=== PATIENT | male | born 1980 | race Hispanic/Latino ===

== ENCOUNTER → 2023-06-01 | Emergency (ER) | payer OTHER ==
[~2023-06-01] MED LIST: HYDROCODONE/APAP 10/325 TAB ONE
--- OUTSIDE RECORDS SUMMARY | 2023-06-01 18:53 | XMS REPORT | Continuity of Care Document ---
Author Name Unknown Address [address] [facility] [address] [place] [address] [facility] thconnect Address [address] [facility] [address] [place] [address] Care Team Providers Care Entry Level Project Engineer Name Role Phone KORINA AWAN Primary Care Physician KORINA Marques Attending Clinician Korina Yusuf MD Attending Clinician [phone]- [phone] JANE GLEZ Attending Clinician Unavailable Jane Glez PA-C Attending Clinician [phone] Unknown, Attending Attending Clinician Unavailab Mccarty Unassigned, [place]christ Attending Clinician U JACOB Andino Attending Clinician Unavail JACOB Nowak Attending Clinician Unavail Jacob Nowak MD Attending Clinician James Mendoza Attending Clinician [phone] JAMES CEDILLO Attending Clinician Unavailable Lab, Adc Fam Pob I Attending Clinician UnavailJACOB Chi Admitting Clinician Ahsan haas Payers Payer Name Policy Type Policy Number Effective Date Expirati on Date Source Problems Condition Name Condition Details Condition Category Status Onset Date Resolution Date Last Treatment Date Treating Clinician Comments Source No known active problems No known active problems Disease [facility] Allergies, Adverse Reactions, Alerts Allergy Name Allergy Type Status Severity Reaction(s) Onset Date Inactive Date Treating Clinician Comments Source NO KNOWN ALLERGIE S Drug Class Active [facility] Social History Social Habit Start Date Stop Date Quantity Comments Source Sexual orientation [facility] History of tobacco use Snuff User [facility] Alcohol intake 2023-02-08 00:00:00 2023-02-08 00:00:00 .71 /d [facility] Exposure to SARS-CoV-2 (event) 2022-04-07 00:00:00 2022-04-17 14:07:00 Not sure [facility] Tobacco use and exposure 2022-03-20 00:00:00 2022-03-20 00:00:00 User of smokeless tobacco [facility] History of Social function 2022-03-12 00:00:00 2022-03-12 00:00:00 [facility] Sex Assigned At 1980 00:00:00 1980 00:00:00 [facility] Smoking Status Start Date Stop Date Source Occasional tobacco smoker 2022-03-20 00:00:00 [facility] Ex-smoker 2020-12-01 00:00:00 2020-12-01 00:00:00 [facility] Never smoker [facility] Medications Ordered Medication Name Filled Medication Name Start Date Stop Date Current Medication? Ordering Clinician Indication Dosage Frequency Signature (SIG) Comments Components Source omeprazole 20 mg capsule 2022-03 00:00: 00 Yes [id number] TAKE ONE CAPSULE BY MOUTH EVERY MORNING [facility] omeprazole 20 mg capsule 2022-03 00:00: 00 Yes [id number] 20mg Take 1 capsule by mouth in the morning. [facility] omeprazole 20 mg capsule 2022-03 00:00: 00 03-05 00:00 :00 No [id number] 20mg Take 1 capsule by mouth in the morning. [facility] benzonatate (TESSALON PERLES) 100 mg capsule 2022-03 00:00: 00 Yes [id number] 100mg Take 1 capsule by mouth every 8 (eight) hours as needed for Cough. [facility] benzonatate (TESSALON PERLES) 100 mg capsule 2022-03 00:00: 00 Yes [id number] 100mg Take 1 capsule by mouth every 8 (eight) hours as needed for Cough. [facility] benzonatate (TESSALON PERLES) 100 mg capsule 2022-03 00:00: 00 Yes [id number] 100mg Take 1 capsule by mouth every 8 (eight) hours as needed for Cough. [facility] oseltamivir (TAMIFLU) 75 mg capsule 2022-03 00:00: 00 02-14 05:59 :00 No [id number] 75mg Take 1 capsule by mouth in the morning and 1 capsule in the evening. Do all this for 5 days. [facility] indomethaci n 50 mg capsule - 00:00: 00 Yes [id number] 50mg Take 1 capsule by mouth as needed for Pain. Prior to strenuous activity. [facility] indomethaci n 50 mg capsule 03-20 00:00: 00 Yes [id number] 50mg Take 1 capsule by mouth as needed for Pain. Prior to strenuous activity. [facility] indomethaci n 50 mg capsule - 00:00: 00 Yes [id number] 50mg Take 1 capsule by mouth as needed for Pain. Prior to strenuous activity. [facility] indomethaci n 50 mg capsule 0 - 00:00: 00 Yes [id number] 50mg Take 1 capsule by mouth as needed for Pain. Prior to strenuous activity. [facility] indomethaci n 50 mg capsule 0 03-20 00:00: 00 Yes [id number] 50mg Take 1 capsule by mouth as needed for Pain. Prior to strenuous activity. [facility] indomethaci n 50 mg capsule 0 -10 00:00: 00 Yes [id number] 50mg Take 1 capsule by mouth as needed for Pain. Prior to strenuous activity. [facility] indomethaci n 50 mg capsule 0 -10 00:00: 00 Yes [id number] 50mg Take 1 capsule by mouth as needed for Pain. Prior to strenuous activity. [facility] indomethaci n 50 mg capsule 2022-0 -10 00:00: 00 Yes [id number] 50mg Take 1 capsule by mouth as needed for Pain. Prior to strenuous activity. [facility] indomethaci n 50 mg capsule 3-0 -10 00:00: 00 Yes [id number] 50mg Take 1 capsule by mouth as needed for Pain. Prior to strenuous activity. [facility] indomethaci n 50 mg capsule 3-0 1-10 00:00: 00 Yes [id number] 50mg Take 1 capsule by mouth as needed for Pain. Prior to strenuous activity. [facility] indomethaci n 50 mg capsule 3-0 -10 00:00: 00 Yes [id number] 50mg Take 1 capsule by mouth as needed for Pain. Prior to strenuous activity. [facility] indomethaci n 50 mg capsule 3-0 -10 00:00: 00 Yes [id number] 50mg Take 1 capsule by mouth as needed for Pain. Prior to strenuous activity. [facility] indomethaci n 50 mg capsule 3-0 -10 00:00: 00 Yes [id number] 50mg Take 1 capsule by mouth as needed for Pain. Prior to strenuous activity. [facility] indomethaci n 50 mg capsule 3-0 -10 00:00: 00 Yes [id number] 50mg Take 1 capsule by mouth as needed for Pain. Prior to strenuous activity. [facility] indomethaci n 50 mg capsule 3-0 -10 00:00: 00 Yes [id number] 50mg Take 1 capsule by mouth as needed for Pain. Prior to strenuous activity. [facility] indomethaci n 50 mg capsule 3-0 -10 00:00: 00 Yes [id number] 50mg Take 1 capsule by mouth as needed for Pain. Prior to strenuous activity. [facility] indomethaci n 50 mg capsule 3-0 -10 00:00: 00 Yes [id number] 50mg Take 1 capsule by mouth as needed for Pain. Prior to strenuous activity. [facility] omeprazole 20 mg capsule 3-0 - 13:16: 02 03-12 00:00 :00 No 20mg Take 20 mg by mouth daily. [facility] omeprazole 20 mg capsule 2022-0 03-12 13:16: 02 03-12 00:00 :00 No 20mg Take 20 mg by mouth daily. [facility] omeprazole 20 mg capsule 3-0 03-12 00:00: 00 Yes [id number] 20mg Take 1 capsule by mouth in the morning. [facility] omeprazole 20 mg capsule 2022-0 03-12 00:00: 00 Yes [id number] 20mg Take 1 capsule by mouth in the morning. [facility] omeprazole 20 mg capsule 0 03-12 00:00: 00 Yes [id number] 20mg Take 1 capsule by mouth in the morning. [facility] omeprazole 20 mg capsule 2022-0 03-12 00:00: 00 Yes [id number] 20mg Take 1 capsule by mouth in the morning. [facility] omeprazole 20 mg capsule 0 03-12 00:00: 00 Yes [id number] 20mg Take 1 capsule by mouth in the morning. [facility] omeprazole 20 mg capsule 2022-0 03-12 00:00: 00 Yes [id number] 20mg Take 1 capsule by mouth in the morning. [facility] omeprazole 20 mg capsule 0 03-12 00:00: 00 Yes [id number] 20mg Take 1 capsule by mouth in the morning. [facility] omeprazole 20 mg capsule 0 03-12 00:00: 00 Yes [id number] 20mg Take 1 capsule by mouth in the morning. [facility] omeprazole 20 mg capsule 3-0 03-12 00:00: 00 Yes [id number] 20mg Take 1 capsule by mouth in the morning. [facility] omeprazole 20 mg capsule 3-0 03-12 00:00: 00 Yes [id number] 20mg Take 1 capsule by mouth in the morning. [facility] omeprazole 20 mg capsule 3-0 03-12 00:00: 00 Yes [id number] 20mg Take 1 capsule by mouth in the morning. [facility] omeprazole 20 mg capsule 3-0 03-12 00:00: 00 Yes [id number] 20mg Take 1 capsule by mouth in the morning. [facility] omeprazole 20 mg capsule 03-12 00:00: 00 Yes [id number] 20mg Take 1 capsule by mouth in the morning. [facility] omeprazole 20 mg capsule 03-12 00:00: 00 Yes [id number] 20mg Take 1 capsule by mouth in the morning. [facility] omeprazole 20 mg capsule 03-12 00:00: 00 Yes [id number] 20mg Take 1 capsule by mouth in the morning. [facility] omeprazole 20 mg capsule 03-12 00:00: 00 Yes [id number] 20mg Take 1 capsule by mouth in the morning. [facility] omeprazole 20 mg capsule 03-12 00:00: 00 Yes [id number] 20mg Take 1 capsule by mouth in the morning. [facility] omeprazole 20 mg capsule 03-12 00:00: 00 02-22 00:00 :00 No [id number] 20mg Take 1 capsule by mouth in the morning. [facility] loratadine (CLARITIN ORAL) 12-01 17:50: 20 Yes Take by mouth. [facility] loratadine (CLARITIN ORAL) 12-01 17:50: 20 Yes Take by mouth. [facility] loratadine (CLARITIN ORAL) 12-01 17:50: 20 Yes Take by mouth. [facility] loratadine (CLARITIN ORAL) 12-01 17:50: 20 Yes Take by mouth. [facility] loratadine (CLARITIN ORAL) 12-01 17:50: 20 Yes Take by mouth. [facility] loratadine (CLARITIN ORAL) 12-01 17:50: 20 Yes Take by mouth. [facility] loratadine (CLARITIN ORAL) 12-01 17:50: 20 Yes Take by mouth. [facility] loratadine (CLARITIN ORAL) 12-01 17:50: 20 Yes Take by mouth. [facility] loratadine (CLARITIN ORAL) 12-01 17:50: 20 Yes Take by mouth. [facility]CLARITIN ORAL) 12-01 17:50: 20 Yes Take by mouth. [facility] loratadine (CLARITIN ORAL) 12-01 17:50: 20 Yes Take by mouth. [facility] 12-01 17:50: 20 Yes Take by mouth. [facility] loratadine (CLARITIN ORAL) 12-01 17:50: 20 Yes Take by mouth. [facility] loratadine (CLARITIN ORAL) 12-01 17:50: 20 Yes Take by mouth. [facility] loratadine (CLARITIN ORAL) 12-01 17:50: 20 Yes Take by mouth. [facility] loratadine (CLARITIN ORAL) 12-01 17:50: 20 Yes Take by mouth. [facility] loratadine (CLARITIN ORAL) 12-01 17:50: 20 Yes Take by mouth. [facility] loratadine (CLARITIN ORAL) 12-01 17:50: 20 Yes Take by mouth. [facility] loratadine (CLARITIN ORAL) 12-01 17:50: 20 Yes Take by mouth. [facility] loratadine (CLARITIN ORAL) 12-01 17:50: 20 Yes Take by mouth. [facility] hydrocortis one 2.5 % cream 12-01 00:00: 00 Yes [id number] Apply to area(s) 3 (three) times daily as needed for Itching. [facility] hydrocortis one 2.5 % cream 12-01 00:00: 00 03-12 00:00 :00 No [id number] Apply to area(s) 3 (three) times daily as needed for Itching. [facility] hydrocortis one 2.5 % cream 12-01 00:00: 00 03-12 00:00 :00 No [id number] Apply to area(s) 3 (three) times daily as needed for Itching. [facility] predniSONE 20 mg tablet 12-01 00:00: 00 12-23 04:59 :00 No [id number] Take 3 tablets by mouth daily for 7 days, THEN 2 tablets daily for 7 days, THEN 1 tablet daily for 7 days. [facility] omeprazole 20 mg capsule 09-29 15:21: 06 Yes 20mg Take 20 mg by mouth daily. [facility] omeprazole 20 mg capsule 09-29 15:21: 06 Yes 20mg Take 20 mg by mouth daily. [facility] omeprazole 20 mg capsule 09-29 15:21: 06 Yes 20mg Take 20 mg by mouth daily. [facility] omeprazole 20 mg capsule 09-29 15:21: 06 Yes 20mg Take 20 mg by mouth daily. [facility] omeprazole 10 mg capsule 09-29 15:19: 29 09-29 00:00 :00 No 10mg Take 10 mg by mouth daily. [facility] omeprazole 10 mg capsule 09-29 15:19: 29 09-29 00:00 :00 No 10mg Take 10 mg by mouth daily. [facility] omeprazole 20 mg capsule 09-29 10:21: 06 Yes 20mg Take 20 mg by mouth daily. [facility] Vital Signs Vital Name Observation Time Observation Value Comments S jerome Systolic blood pressure 2023-02-08 17:02:00 136 mm[Hg] [facility] Diastolic blood pressure 2023-02-08 17:02:00 84 mm[Hg] [facility] Heart rate 2023-02-08 16:59:00 94 /min [facility] 2023-02-08 16:59:00 37 Kay [facility] Respiratory rate 2023-02-08 16:59:00 13 /min [facility] Body height 2023-02-08 16:59:00 167.6 cm [facility] Body weight 2023-02-08 16:59:00 109.997 kg [facility] BMI 2023-02-08 16:59:00 39.14 kg/m2 [facility] Oxygen saturation in Arterial blood by Pulse oximetry 2023-02-08 16:59:00 97 /min [facility] Systolic blood pressure 2022-04-17 20:26:00 149 mm[Hg] [facility] Diastolic blood pressure 2022-04-17 20:26:00 92 mm[Hg] [facility] Heart rate 2022-04-17 20:26:00 77 /min [facility] Body height 2022-04-17 20:26:00 167.6 cm [facility] Body weight 2022-04-17 20:26:00 109.77 kg [facility] BMI 2022-04-17 20:26:00 39.06 kg/m2 [facility] Oxygen saturation in Arterial blood by Pulse oximetry 2022-04-17 20:26:00 97 /min [facility] Systolic blood pressure 2022-03-20 19:39:00 134 mm[Hg] [facility] Diastolic blood pressure 2022-03-20 19:39:00 90 mm[Hg] [facility] Heart rate 2022-03-20 19:39:00 71 /min [facility] Body height 2022-03-20 19:39:00 167.6 cm [facility] Body weight 2022-03-20 19:39:00 109.77 kg [facility] BMI 2022-03-20 19:39:00 39.06 kg/m2 [facility] Systolic blood pressure 2022-03-12 19:01:00 126 mm[Hg] [facility] Diastolic blood pressure 2022-03-12 19:01:00 89 mm[Hg] [facility] Heart rate 2022-03-12 19:01:00 98 /min [facility] Body temperature 2022-03-12 19:01:00 37.11 Kay [facility] Body height 2022-03-12 19:01:00 167.6 cm [facility] Body weight 2022-03-12 19:01:00 110.678 kg [facility] BMI 2022-03-12 19:01:00 39.38 kg/m2 [facility] Systolic blood pressure 2020-12-01 22:52:00 138 mm[Hg] [facility] Diastolic blood pressure 2020-12-01 22:52:00 90 mm[Hg] [facility] Heart rate 2020-12-01 22:49:00 104 /min [facility] Body temperature 2020-12-01 22:49:00 36.83 Kay [facility] Respiratory rate 2020-12-01 22:49:00 17 /min [facility] Body height 2020-12-01 22:49:00 167.6 cm [facility] Body weight 2020-12-01 22:49:00 106.595 kg [facility] BMI 2020-12-01 22:49:00 37.93 kg/m2 [facility] Oxygen saturation in Arterial blood by Pulse oximetry 2020-12-01 22:49:00 98 /min [facility] Systolic blood pressure 2020-09-29 15:12:00 134 mm[Hg] [facility] Diastolic blood pressure 2020-09-29 15:12:00 88 mm[Hg] [facility] Heart rate 2020-09-29 15:12:00 98 /min [facility] Body height 2020-09-29 15:12:00 167.6 cm [facility] Body weight 2020-09-29 15:12:00 108.682 kg [facility] BMI 2020-09-29 15:12:00 38.67 kg/m2 [facility] Oxygen saturation in Arterial blood by Pulse oximetry 2020-09-29 15:12:00 97 /min [facility] Procedures Procedure Date / Time Performed Performing Clinicia n Source POCT MOLECULAR FLU 2023-02-08 17:07:00 Unknown, Attend ing [facility] PATIENT FINANCIAL POLICY 2023-02-08 16:33:17 Doctor Unassigned, Gilchrist [facility] CT HEAD WO CONTRAST 2022-04-10 14:48:49 Vijaya Bravo [facility] ASSIGNMENT OF BENEFITS 2022-04-10 14:30:38 Docto r Unassigned, Gilchrist [facility] XR SACRUM AND COCCYX 2020-09-29 16:20:00 Reyes Awan [facility] Encounters Start Date/Time End Date/Time Encounter Type Admission Type Attending Clinicians Care Facility Care Department Encounter ID Source 2023-03-05 00:00:00 2023-03-05 00:00:00 Ref[facility]ina [facility] [id number] 350.1.13.10 4.2.7.2.686 [id number] [facility] 2023-02-22 00:00:00 2023-02-22 00:00:00 Nicci Awan [facility] [id number] 350.1.13.10 4.2.7.2.686 [id number] [facility] 2023-02-08 10:20:00 2023-02-08 11:21:30 Outpatient R JANE GLEZ [facility] [id number] [facility] 2023-02-08 10:20:00 2023-02-08 11:21:30 Urgent Care Jane Glez Unknown, Attending [facility] [id number] 350.1.13.10 4.2.7.2.686 [id number] [facility] 2023-02-08 00:00:00 2023-02-08 00:00:00 Orders Only Doctor Unassigned, Gilchrist [facility] 1.20.114 350.1.13.10 4.2.7.2.686 [id number] [facility] 2022-04-17 14:20:00 2022-04-17 14:45:03 Outpatient JACOB BOWMAN [facility] [id number] [facility] 2022-04-17 14:20:00 2022-04-17 14:45:03 Office Visit [facility]Yann [facility] 1.114 350.1.13.10 4.2.7.2.686 [id number] [facility] 2022-04-10 08:31:26 2022-04-10 23:59:00 Outpatient JACOB BOWMAN [facility] [id number] [facility] 2022-04-10 08:31:26 2022-04-10 23:59:00 Hospital Encounter Jacob Bravo [facility] 1.114 350.1.13.10 4.2.7.2.686 [id number] [facility] 2022-04-10 00:00:00 2022-04-10 00:00:00 Orders Only Doctor Unassigned, Gilchrist [facility] 1.2.114 350.1.13.10 4.2.7.2.686 [id number] [facility] 2022-04-04 00:00:00 2022-04-04 00:00:00 Telephone Jacob Bravo [facility]?SHARI [facility] [id number] 350.1.13.10 4.2.7.2.686 [id number] [facility] 2022-03-30 14:17:43 2022-03-30 23:59:00 Hospital Encounter Jacob Bravo [facility] [id number] 350.1.13.10 4.2.7.2.686 [id number] [facility] 2022-03-30 00:00:00 2022-03-30 23:59:00 Outpatient JACOB BOWMAN [facility] [id number] [facility] 2022-03-30 00:00:00 2022-03-30 00:00:00 [facility] OFF[facility] [id number] 350.1.13.10 4.2.7.2.686 [id number] [facility] 2022-03-21 00:00:00 2022-03-21 00:00:00 [facility] 1.2.840.114 350.1.13.10 4.2.7.2.686 [id number] [facility] 2022-03-21 00:00:00 2022-03-21 00:00:00 Telephone [facility]Yann [facility] 1.2.840.114 350.1.13.10 4.2.7.2.686 [id number] [facility] 2022-03-20 14:40:00 2022-03-20 14:40:00 Outpatient JACOB BOWMAN [facility] [id number] [facility] 2022-03-20 13:40:00 2022-03-20 14:39:14 Outpatient JACOB BOWMAN [facility] [id number] [facility] 2022-03-20 13:40:00 2022-03-20 14:39:14 Office Visit Jacob Bravo [facility] KATE?[facility] [id number] 350.1.13.10 4.2.7.2.686 [id number] [facility] 2022-03-20 00:00:00 2022-03-20 00:00:00 Telephone Jacob Bravo [facility] 1.84.114 350.1.13.10 4.2.7.2.686 [id number] [facility] 2022-03-12 13:15:00 2022-03-12 13:30:00 Office Visit Korina [facility]wan [facility] 1.84.114 350.1.13.10 4.2.7.2.686 [id number] [facility] 2022-03-12 13:15:00 2022-03-12 13:15:[address]INA PEÑA [facility] [id number] [facility] 2020-12-01 17:44:29 2020-12-01 18:04:29 Urgent Care James Cedillo [facility] 1.84.114 350.1.13.10 4.2.7.2.686 [id number] [facility] 2020-12-01 17:40:00 2020-12-01 17:40:00 Outpatient R JAMES CED[facility]O 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, [facility] Pob Sheila Awan [facility] Office Building One 1..114 350.1.13.10 4.2.7.2.686 [id number] [facility] 2020-09-29 10:00:37 2020-09-29 10:30:37 Office Visit Emperatriz [facility] Office Building One 1.114 350.1.13.10 4.2.7.2.686 [id number] [facility] 2020-09-29 10:15:00 2020-09-29 10:15:00 Outpatient R EMPERATRIZ [facility] [id number] [facility] Results Test Description Test Time Test Comments Results Result Co [facility]ments Source [facility] SA[facility] AND [id number] 19:30:39 FINDINGS/IMPRESSION: No fractures or dislocations are identified. The SI joints are unremarkable without degenerative changes. HISTORY:coccydynia TECHNIQUE: Frontal and lateral views of the sacrum and coccyx wereobtained. COMPARISON:None. [facility], Radiant Results Inft User - 09/29/2020 2:31 PM CDTForma tting of this note might be different from the original.HISTORY:coccydynia TECHNIQUE: Frontal and lateral views of the sacrum and coccyx wereobtained.COMPARISON:None.IMPRESSIONFINDINGS/IMPRESSION:No fractures or dislocations are identified.The SI joints are unremarkable without degenerative changes.[facility]
--- NOTE | 2023-06-01 19:35 | EDPHYS ---
Physician Documentation [facility] Name: Norm Pierre Age: 42 yrs Sex: Male : 1980 Arrival Date: 06/01/2023 Time: 18:49 Bed 10 Private MD: Burton Moseley ED Physician Henrry Francis HPI: 05/31 22:13 This 42 yrs old Male presents to ER via Ambulatory with complaints of Mouth rt Problem. 22:13 Patient presents to the ED with pain to the right lower molar. Patient is scheduled to rt have this tooth removed on Saturday. Is currently taking amoxicillin for it. Is currently taking ibuprofen, getting adequately for the pain and is having difficulty sleeping. Denies any difficulty swallowing. Denies other acute complaints at this time, symptoms are aching nature, moderate severity, no other aggravating or elevating factor.. Historical: - Allergies: 19:24 No Known Allergies; km8 - PMHx: 19:24 None; km8 - PSHx: 19:24 Tonsillectomy; km8 - Immunization history:: Client reports having NOT received the Covid vaccine. Flu vaccine is not up to date. - Social history:: Smoking status: Patient denies any tobacco usage or history of. Patient uses alcohol, weekly. Patient/guardian denies using street drugs. - Family history:: not pertinent. ROS: 22:13 Constitutional: Negative for fever, chills, and weight loss, Cardiovascular: Negative rt for chest pain, palpitations, and edema, Respiratory: Negative for shortness of breath, cough, wheezing, and pleuritic chest pain, Abdomen/GI: Negative for abdominal pain, nausea, vomiting, diarrhea, and constipation, Skin: Negative for injury, rash, and discoloration, Neuro: Negative for headache, weakness, numbness, tingling, and seizure, 22:13 ENT: Positive for dental pain, Negative for difficulty swallowing, Exam: 22:13 Constitutional: This is a well developed, well nourished patient who is awake, alert, rt and in no acute distress. Head/Face: Normocephalic, atraumatic. Chest/axilla: Normal chest wall appearance and motion. Nontender with no deformity. No lesions are appreciated. Cardiovascular: Regular rate and rhythm with a normal S1 and S2. No gallops, murmurs, or rubs. Normal PMI, no JVD. No pulse deficits. Respiratory: Lungs have equal breath sounds bilaterally, clear to auscultation and percussion. No rales, rhonchi or wheezes noted. No increased work of breathing, no retractions or nasal flaring. Abdomen/GI: Soft, non-tender, with normal bowel sounds. No distension or tympany. No guarding or rebound. No evidence of tenderness throughout. Skin: Warm, dry with normal turgor. Normal color with no rashes, no lesions, and no evidence of cellulitis. MS/ Extremity: Pulses equal, no cyanosis. Neurovascular intact. Full, normal range of motion. 22:13 ENT: Dental caries noted to the right inferior molar, no appreciable swelling, no erythema, no stridor, airway involvement. Vital Signs: 19:22 BP 170 / 109; Pulse 88; Resp 16; Temp 98.6(TE); Pulse Ox 97% on R/A; Weight 106.59 kg km8 (R); Height 5 ft. 6 in. (R); Pain 4/10; 19:22 Body Mass Index 37.93 (106.59 kg, 167.64 cm) km 19:22 Pain Scale: Adult km8 [place] Coma Score: 19:22 Eye Response: spontaneous(4). Motor Response: obeys commands(6). Verbal Response: km8 oriented(5). Total: 15. MDM: 19:28 Patient medically screened. rt 22:13 Differential diagnosis: dental caries. Data reviewed: vital signs, nurses notes. I rt considered the following discharge prescriptions or medication management in the emergency department Medications were administered in the Emergency Department. See MAR. Test considered but Not performed: CT: No evidence of airway involvement, low suspicion for RPA, [employer], Jr's angina, CT scan is not indicated. Counseling: I had a detailed discussion with the patient and/or guardian regarding the historical points, exam findings, and any diagnostic results supporting the discharge/admit diagnosis, the need for outpatient follow up, to return to the emergency department if symptoms worsen or persist or if there are any questions or concerns that arise at home. Administered Medications: 19:45 Drug: Scio PO 10 mg-325 mg 1 tabs PO once Route: PO; 8 19:47 Follow up: Response: Medication administered at discharge. km8 Disposition Summary: 06/01/23 19:34 Discharge Ordered Notes: Location: Home rt Problem: an ongoing problem rt Symptoms: are unchanged rt Condition: Stable rt Diagnosis - Dental Pain rt Followup: rt - With: Private Physician - When: 2 - 3 days - Reason: Discharge Instructions: - Discharge Summary Sheet rt - Dental Pain rt Forms: - Medication Reconciliation Form rt - Thank You Letter rt - Antibiotic Education rt - Prescription Opioid Use rt - Patient Portal Instructions rt - Leadership Thank You Letter rt Prescriptions: - acetaminophen-codeine 300-30 mg Oral tablet - take 1 tablet ORAL route every 8 hours as needed for pain; 18 tablet; Refills: rt 0, Product Selection Permitted Signatures: Henrry Francis MD MD rt Negin Miner RN RN km8
--- NOTE | 2023-06-01 19:35 | ER ---
Nurse's Notes [facility] Name: Norm Pierre Age: 42 yrs Sex: Male : 1980 Arrival Date: 06/01/2023 Time: 18:49 Bed 10 Private MD: Burton Moseley Diagnosis: Dental Pain Presentation: 05/31 19:22 Chief complaint: Patient states: reports right bottom tooth pain starting yesterday; pt km8 has appointment to get broken tooth removed Saturday and is currently on Amoxicillin. Coronavirus screen: Client denies travel out of the [place] in the last 14 days. Ebola Screen: No symptoms or risks identified at this time. Initial Sepsis Screen: Does the patient meet any 2 criteria? No. Patient's initial sepsis screen is negative. Does the patient have a suspected source of infection? No. Patient's initial sepsis screen is negative. Risk Assessment: Do you want to hurt yourself or someone else? Patient reports no desire to harm self or others. Onset of symptoms was May 31, 2023. 19:22 Method Of Arrival: Ambulatory km8 19:22 Acuity: CATHY 3 km8 Triage Assessment: 19:24 General: Appears in no apparent distress. uncomfortable, Behavior is calm, cooperative, km8 appropriate for age. Pain: Complains of pain in lower right third molar Pain currently is 4 out of 10 on a pain scale. Quality of pain is described as aching. EENT: Dental caries noted in lower right third molar (#32). Neuro: Level of Consciousness is awake, alert, obeys commands, Oriented to person, place, time, situation. Cardiovascular: Denies chest pain, shortness of breath, Patient's skin is warm and dry. Respiratory: Airway is patent Respiratory effort is even, unlabored, Respiratory pattern is regular, symmetrical. GI: No signs and/or symptoms were reported involving the gastrointestinal system. : No signs and/or symptoms were reported regarding the genitourinary system. Derm: No signs and/or symptoms reported regarding the dermatologic system. Skin is intact, is healthy with good turgor, Skin is dry, Skin is pink, warm \T\ dry. normal, Skin temperature is warm. Musculoskeletal: No signs and/or symptoms reported regarding the musculoskeletal system. Range of motion: intact in all extremities. Historical: - Allergies: 19:24 No Known Allergies; km8 - PMHx: 19:24 None; km8 - PSHx: 19:24 Tonsillectomy; km8 - Immunization history:: Client reports having NOT received the Covid vaccine. Flu vaccine is not up to date. - Social history:: Smoking status: Patient denies any tobacco usage or history of. Patient uses alcohol, weekly. Patient/guardian denies using street drugs. - Family history:: not pertinent. Screenin:22 [facility] ED Fall Risk Assessment (Adult) History of falling in the last 3 months, km8 including since admission No falls in past 3 months (0 pts) Confusion or Disorientation No (0 pts) Intoxicated or Sedated No (0 pts) Impaired Gait No (0 pts) Mobility Assist Device Used No (0 pt) Altered Elimination No (0 pt) Score/Fall Risk Level 0 - 2 = Low Risk Oriented to surroundings, Maintained a safe environment, Educated pt \T\ family on fall prevention, incl call for assistance when getting out of bed, Assessed \T\ reinforced patient's understanding of fall precautions. Abuse screen: Denies threats or abuse. Denies injuries from another. Nutritional screening: No deficits noted. Tuberculosis screening: No symptoms or risk factors identified. Assessment: 19:22 Reassessment: see triage assessment. km8 Vital Signs: 19:22 BP 170 / 109; Pulse 88; Resp 16; Temp 98.6(TE); Pulse Ox 97% on R/A; Weight 106.59 kg km8 (R); Height 5 ft. 6 in. (R); Pain 4/10; 19:22 Body Mass Index 37.93 (106.59 kg, 167.64 cm) km8 19:22 Pain Scale: Adult km [place] Coma Score: 19:22 Eye Response: spontaneous(4). Motor Response: obeys commands(6). Verbal Response: km8 oriented(5). Total: 15. ED Course: 18:51 Patient arrived in ED. mr 18:51 Burton Moseley MD is Private Physician. mr 18:57 Henrry Francis MD is Attending Physician. rt 19:22 Patient has correct armband on for positive identification. Call light in reach. Side km8 rails up X 1. 19:22 No provider procedures requiring assistance completed. Patient did not have IV access km8 during this emergency room visit. Patient maintains SpO2 saturation greater than 95% on room air. 19:24 Triage completed. km8 19:24 Arm band placed on right wrist. km8 19:37 Jo Diaz, RN is Primary Nurse. ko1 19:45 Provided Education on: d/c teaching. km8 19:48 Primary Nurse role handed off by Jo Diaz, RN km8 19:48 Negin Miner, RN is Primary Nurse. km8 Administered Medications: 19:45 Drug: Amidon PO 10 mg-325 mg 1 tabs PO once Route: PO; km8 19:47 Follow up: Response: Medication administered at discharge. km8 Medication: 19:22 VIS not applicable for this client. km8 Outcome: 19:34 Discharge ordered by . rt 19:45 Discharged to home ambulatory, km8 19:45 Condition: good 19:45 Instructed on discharge instructions, follow up and referral plans. medication usage, Demonstrated understanding of instructions, follow-up care, medications, 19:48 Patient left the ED. km8 Signatures: Cheyanne Vieira, Reg Reg mr Jo Diaz, RN RN ko1 Henrry Francis MD MD rt Negin Miner, RODNEY RN km8
[2023-06-01 20:10] VITALS: BP 170/109; TEMP 98.6; O2SAT 97
== END ==
LOC: ER 18:49
DX: K08.89 Other specified disorders of teeth and supporting structures (principal)
CPT/HCPCS: 99284